=== PATIENT | female | born 1955 | race Caucasian/White ===

== ENCOUNTER 2022-12-10 09:16 | Outpatient (CLI) | payer OTHER, SELFPAY ==
--- NOTE | 2022-12-18 13:00 | WPDHOMESLEEP ---
Sleep Study - Home Unattended Date of Study: 12/10/22 Ordering Provider: Maria Elena Brunner DO Interpreting Provider: Janis Gonsalez DO Home Sleep Study Type: Watch PAT Height: 1.65 m Weight: 113.398 kg Body Mass Index: 41.5 Neck Circumference (inches): 18.25 [place]: 18 Reason for Sleep Study Snoring, daytime hypersomnia Sleep History The patient is a 67-year-old female with hypertension and depression that had a sleep study ordered by her primary care for evaluation of sleep apnea. The patient denies awakening from sleep short of breath. She denies awakening at night with heartburn, belching or cough. She constantly snores loudly enough that others complain. She denies having trouble sleeping when she has a cold. She denies waking up gasping for air throughout the night. She denies having breathing problems at night observed by herself or others. He rarely sweats excessively at night. She occasionally has heart palpitations or irregular heartbeats during the night. She frequently falls asleep during the day but never while driving. She denies sleep paralysis and cataplexy. She occasionally has trouble at school or work due to sleepiness. She rarely experiences vivid dreamlike scenes upon awakening or falling asleep. She denies feeling afraid of going to sleep. She denies having nightmares. She occasionally remembers her dreams. She denies having thoughts racing through her mind. She denies feeling sad, depressed or anxious. She denies having muscular tension. She denies noticing parts of her body jerk. She denies kicking during the night. She denies having crawling and aching feelings in her legs and denies having leg pain during the night. She denies grinding her teeth during sleep and denies awakening with morning jaw pain. She denies being bothered by pain during the day and denies being awakened by pain during the night. She rarely wakes up feeling stiff in the morning. She denies waking up with sore or achy muscles. She denies waking up with pain in the neck, spine or other joints. She goes to bed at 10:30 p.m. on weekdays and at 11:00 p.m. on the weekends. It takes her less than 5 minutes to fall asleep. She wakes up twice throughout the night to urinate and is able to fall back asleep within 10 minutes. He wakes up at 6:30 a.m. on weekdays and at 8:00 a.m. on the weekends. She typically gets 8-10 hours of sleep per night. She does not stay in bed after waking up in the morning. She denies consuming any caffeinated beverages within 2 hours of bedtime. She denies engaging in physical exercise before bedtime. She will read before falling asleep. She will take naps in the afternoon or the evening and they are refreshing. She consumes 2 cups of caffeinated beverage per day. She will have 1 alcoholic beverage per week. She denies tobacco and recreational use. [facility] Family History Family History Father Hypertension Glaucoma Mother Diabetes mellitus Macular degeneration Social History Social History Smoking status: Never smoker Second hand tobacco smoke exposure: No Alcohol intake: current Drinks per week: 1 Substance use: never Lack of Transportation: No Lack of Food: Never True Current Housing: I Have Housing Concerned About Future Housing: No Difficulty Paying Gas/Electric Bills: No Difficulty Paying for Meds: No Currently Unemployed: No Education: Master's Degree or Higher Difficulty w/ Childcare or Family Care: No Medications Home Medications Medication Instructions Recorded Confirmed Type losartan 50 mg tablet 50 mg PO DAILY #90 tabs 12/05/22 Rx bupropion HCl 150 mg 24 hr tablet, 150 mg PO QAM #90 tabs 12/12/22 Rx extended release hydrochlorothiazide 12.5 mg tablet 12.5 mg PO DAILY #90 tabs 12/12/22 Rx Sleep Procedure The
[2022-12-18 13:01] VITALS: BMI 41.5
== END 2022-12-11 12:44 | disposition home or self-care (01) ==
LOC: ANHCSM 09:17
PROVIDERS: PCP Family Medicine; Visit Provider Family Medicine
DX: G47.9 Sleep disorder, unspecified (principal); R53.83 Other fatigue; R06.83 Snoring; E66.9 Obesity, unspecified; G47.33 Obstructive sleep apnea (adult) (pediatric)
CPT/HCPCS: 95800

== ENCOUNTER 2023-01-10 09:45 | Outpatient (CLI) | payer OTHER, SELFPAY ==
--- NOTE | 2023-01-30 12:38 | WPDSLEEPSTUD ---
Sleep Study Date of Study: 01/10/23 Ordering Provider: Maria Elena Brunner DO Interpreting Physician: Nicolasa Gore MD Sleep Study Type: CPAP Titration Height: 1.65 m Weight: 113.398 kg Body Mass Index: 41.5 Neck Circumference (inches): 18.25 [place]: 18 Reason for Sleep Study * 12/10/2022 Home sleep test using WatchPat = AHI of 85.6 with desaturation down to 65%. The patient returns for a CPAP titration. Sleep History Carmelina Saavedra is a 67-year-old woman who had a home sleep test 12/10/22 for excessive daytime sleepiness. This showed severe obstructive sleep apnea with an AHI of 85.6 with desaturation down to 65%. She returns for a CPAP titration. Medical co-morbidities include hypertension and depression. She does not wake from sleep feeling short of breath. She does not have episodes of waking at night with heartburn, belching or coughing.? She constantly snores loudly enough that others complain.? She denies having trouble sleeping when she has a cold.? She denies waking up gasping for air at night. She rarely sweats excessively at night.? She occasionally has heart palpitations or irregular heartbeats during the night.? She frequently falls asleep during the day but never while driving.? She denies muscle weakness with strong emotion or feeling muscle weakness on falling asleep or upon waking. She occasionally has daytime difficulty at work due to sleepiness.? She rarely experiences vivid dreamlike scenes upon awakening or falling asleep.? She does not feel afraid to go to sleep. She denies having nightmares.? She occasionally remembers her dreams.? She denies having thoughts racing through her mind.? She denies feeling sad, depressed or anxious.? She denies having muscular tension.? She does not notice parts of her body jerking.? She does not kick at night. She dose not have crawling or aching feelings in her legs or any leg pain at night. She denies grinding her teeth during sleep, denies waking with morning jaw pain.? She denies being bothered by pain during the day and denies being awakened by pain during the night.? She rarely wakes up feeling stiff in the morning.? She denies waking up with sore or achy muscles.? She denies waking up with pain in the neck, spine or other joints.? Normal bedtime is 10:30 p.m. on weekdays, 11:00 p.m. on the weekends.? She falls asleep within 5 minutes, waking twice throughout the night to urinate. She is able to return to sleep within 10 minutes.? She wakes at 6:30 a.m. on weekdays and at 8:00 a.m. on the weekends.? She typically gets 8-10 hours of sleep per night.? She takes naps in the afternoon or the evening. A short nap is not refreshing. Habits: No tobacco. Caffeine: 2 servings per day. Alcohol: 1 alcoholic beverage per week.? Recreational substance: none. [facility] Past Medical History Medical History (Updated 01/30/23 @ 13:04 by Nicolasa Gore MD) Depression HTN (hypertension) CAN (obstructive sleep apnea) Family History Family History Father Hypertension Glaucoma Mother Diabetes mellitus Macular degeneration Social History Social History Smoking status: Never smoker Second hand tobacco smoke exposure: No Alcohol intake: current Drinks per week: 1 Substance use: never Lack of Transportation: No Lack of Food: Never True Current Housing: I Have Housing Concerned About Future Housing: No Difficulty Paying Gas/Electric Bills: No Difficulty Paying for Meds: No Currently Unemployed: No Education: Master's Degree or Higher Difficulty w/ Childcare or Family Care: No Medications Home Medications Medication Instructions Recorded Confirmed Type losartan 50 mg tablet 50 mg PO DAILY #90 tabs 12/05/22 Rx bupropion HCl 150 mg 24 hr tablet, 150 mg PO QAM #90 tabs 12/12/22 Rx extended release hydrochlorothiazide 12.5 mg tablet 12.5 mg P
[2023-01-30 12:39] VITALS: BMI 41.5
== END 2023-01-11 07:19 | disposition home or self-care (01) ==
LOC: ANHCSM 09:45
PROVIDERS: PCP Family Medicine; Visit Provider Family Medicine
DX: G47.33 Obstructive sleep apnea (adult) (pediatric) (principal)
CPT/HCPCS: 95811

== ENCOUNTER 2023-06-24 10:02 | Emergency (ER) | payer OTHER, SELFPAY ==
--- NOTE | ~2023-06-24 | XR_ITS ---
EXAM: XR knee LT 3V DATE: 06/24/2023 15:32 HISTORY: knee pain, SLAMMED KNEE IN CAR DOOR SAT. . COMPARISON: None available. FINDINGS: Normal mineralization. No fracture or dislocation. No lytic or blastic lesion. Tricompartm ental osteoarthritic arthritis, moderate in the medial compartment. No erosion or periosteal change. Soft tissues within normal limits. Large volume joint fluid. IMPRESSION: No acute osseous finding in the left knee. Large left knee joint effusion. Reviewed, dictated and finalized at location K. U[employer] RECEIVABLE SPECIALIST IMPRESSION: No acute osseous finding in the left knee. Large left knee joint ef fusion.
[2023-06-24 10:07] VITALS: BP 122/59; PULSE 71; RESP 16; TEMP 36.2; O2SAT 98
[2023-06-24 14:21] VITALS: BP 118/66; PULSE 64; RESP 15; O2SAT 100
--- NOTE | 2023-06-24 15:13 | ED.EXTPRO ---
HPI - Extremity Problem General Chief complaint: Extremity Problem,Nontraumatic Stated complaint: knee and hip pain Time Seen by Provider: 06/24/23 14:18 History of Present Illness HPI Narrative: Patient is a 68-year-old female presenting with left knee pain. States that a couple of days ago she developed severe left knee pain that has been making it difficult for her to walk and stand up from sitting. States that she took 800 mg of ibuprofen earlier today which did help temporarily. She is concerned that she is going to fall or not be able to stand up from sitting since she lives alone. States that she did fall on to this knee several months ago but has not really had any problems until this weekend. States that she starting to have some right hip and groin pain as she thinks that she is over compensating with this leg. No new trauma. No swelling or redness. No infectious symptoms. Related Data Allergies Allergy/AdvReac Type Severity Reaction Status Date / Time No Known Allergies Allergy Verified 05/28/23 14:36 Review of Systems Review of Systems: All systems reviewed & are unremarkable except as noted in HPI and below PMFSH Past Medical History Medical History Depression HTN (hypertension) CAN (obstructive sleep apnea) Family History Family History Father Hypertension Glaucoma Mother Diabetes mellitus Macular degeneration Social History Social History Smoking status: Never smoker Second hand tobacco smoke exposure: No Alcohol intake: current Drinks per week: 1 Substance use: never Lack of Transportation: No Lack of Food: Never True Current Housing: I Have Housing Concerned About Future Housing: No Difficulty Paying Gas/Electric Bills: No Difficulty Paying for Meds: No Currently Unemployed: No Education: Master's Degree or Higher Difficulty w/ Childcare or Family Care: No Exam Narrative: GENERAL: Well-appearing, In no acute distress, pleasant cooperative HEAD: Normocephalic, atraumatic. EYES: PERRLA and EOMI. ENT: grossly unremarkable NECK: Supple. CHEST: No respiratory distress. HEART: Regular rate and rhythm EXTREMITIES: Normal range of motion. left knee w/mild diffuse tenderness, no erythema of knee; ROM intact; distal pulses 2+; no swelling of calves SKIN: Warm, dry skin lower legs NEURO: No focal deficits. Alert and oriented x3. PSYCH: Normal mood and affect. Course Vital Signs Vital signs: Vital Signs Temperature 97.1 F L 06/24/23 10:07 Pulse Rate 71 06/24/23 10:07 Respiratory Rate 16 06/24/23 10:07 Blood Pressure 122/59 L 06/24/23 10:07 Pulse Oximetry 98 06/24/23 10:07 Temperature 97.1 F L 06/24/23 10:07 Pulse Rate 66 06/24/23 16:49 Respiratory Rate 17 06/24/23 16:49 Blood Pressure 128/69 06/24/23 16:49 Pulse Oximetry 99 06/24/23 16:49 MDM - Extremity (Nontraumatic) MDM Narrative Medical decision making narrative: 68-year-old female presenting with left knee pain. Vitals stable. Exam remarkable for the above. knee x-ray with large left knee effusion. Suspect that this is the cause of her worsening pain. Patient states that she has had some relief from IM Toradol and a Percocet. Ever wrap will be placed for some compression and she will be provided with crutches to keep weight off of the knee. Will send in for 5 Percocet for severe pain, recommend ibuprofen as well. Advised orthopedic follow-up. Appropriate return precautions given. Patient is agreeable with this plan. Discharged in stable condition. Differential Diagnosis Differential diagnosis: Likely other ( Knee pain, knee effusion) Medical Records Attestation: I reviewed the patient's medical records. Imaging Data Radiologist's impression: ITS Impressions Kn
[2023-06-24] MEDS: KETOROLAC 30 MG/ML VIAL (*BKC) IM (15:36)
[2023-06-24] MEDS: oxyCODONE/ACETAMINOPHEN (*CRX) 5-325 MG TABLET 1 TABLET PO (15:37)
[2023-06-24 16:49] VITALS: BP 128/69; PULSE 66; RESP 17; O2SAT 99
== END 2023-06-24 16:53 | disposition home or self-care (01) ==
PROVIDERS: Emergency Provider Emergency Medicine; PCP Family Medicine
DX: M25.462 Effusion, left knee (principal); I10 Essential (primary) hypertension
CPT/HCPCS: 73562; 96372; 99283; A9270; J1885

== ENCOUNTER → 2023-07-01 15:20 | Outpatient (CLI) | payer OTHER, SELFPAY ==
--- NOTE | ~2023-07-01 | MM_ITS ---
EXAMINATION: MM screening arturo BI w jose c HISTORY: Screening mammogram TECHNIQUE: Craniocaudal and mediolateral oblique 3-D tomosynthesis images were obtained and synthetic 2-D images were generated. CAD analysis was submitted and interpreted. COMPARISON: No prior mammogram is available for comparison at this institution. BREAST PARENCHYMAL COMPOSITION: There are scattered areas of fibroglandular density. FINDINGS: There is a 7 mm circumscribed opacity with small smooth circular calcification and with sai o sign, situated in the anterior aspect of the mid to upper outer right breast. Approximately 6 mm mass is suggested anteriorly in the lower mid left breast. Bilateral diagnostic mammography is recommended, with ultrasound if required IMPRESSION: 1. Bilateral breast masses 2. Bilateral diagnostic mammography is recommended, with ultrasound if required BI-RADS Category 0: Incomplete: Needs additional imaging evaluation. Reviewed, dictated and finalized at location A. LE ANALYST
== END ==
PROVIDERS: PCP Family Medicine; Visit Provider Family Medicine
DX: Z12.31 Encounter for screening mammogram for malignant neoplasm of breast (principal); R92.8 Other abnormal and inconclusive findings on diagnostic imaging of breast
CPT/HCPCS: 77063; 77067

== ENCOUNTER 2023-07-09 10:16 | Outpatient (CLI) | payer OTHER, SELFPAY ==
--- NOTE | ~2023-07-09 | MM_ITS ---
EXAMINATION: MM diagnostic arturo BI w jose c HISTORY: Bilateral breast masses reported on 06/2023 screening mammogram examination TECHNIQUE: Additional 3-D tomosynthesis images of both breasts were performed and synthetic 2-D image s were generated. CAD analysis was submitted and interpreted. COMPARISON: 07/01/2023ilateral screening mammogram FINDINGS: Low-density circumscribed approximately 7 mm rounded opacity with benign circular calcifica tion is noted anteriorly in the upper outer right breast, benign in appearance. No reproducible suspicious mass, architectural distortion, malignant calcification, skin thickening o r retraction of either breast is detected. IMPRESSION: 1. Benign finding 2. Routine annual mammographic screening is recommended BI-RADS Category 2: Benign finding(s). Reviewed, dictated and finalized at location A.
== END 2023-07-09 10:17 | disposition home or self-care (01) ==
PROVIDERS: PCP Family Medicine; Visit Provider Family Medicine
DX: N63.25 Unspecified lump in the left breast, overlapping quadrants (principal); N63.21 Unspecified lump in the left breast, upper outer quadrant; N63.10 Unspecified lump in the right breast, unspecified quadrant; N63.20 Unspecified lump in the left breast, unspecified quadrant
CPT/HCPCS: 77062; 77066; G0279

== ENCOUNTER 2023-07-26 08:37 | Outpatient (CLI) | payer OTHER, SELFPAY ==
[2023-07-26 13:34] LABS: Hematocrit 40.3 % (37.0-47.0); Hemoglobin 12.3 g/dL (12.0-15.0); Mean Corpuscular HGB Conc 30.5 g/dl (32-36); Mean Corpuscular Hemoglobin 26.3 pg (26-34); Mean Corpuscular Volume 86.3 fl (80-100); Mean Platelet Volume 9.2 fl (7.4-10.4); Platelet Count Result 247 k/mm3 (150-375); Red Blood Count 4.67 M/mm3 (4.2-5.4); Red Cell Distribution Width 14.7 % (11.5-14.5); White Blood Count 8.8 K/mm3 (4.5-10.0)
[2023-07-26 13:53] LABS: Alanine Aminotransferase 18 U/L (6-35); Albumin Level 4.2 g/dL (3.5-5.1); Alkaline Phosphatase 74 U/L (38-126); Anion Gap 9 mmol/L (4-12); Aspartate Amino Transferase 27 U/L (14-36); Bilirubin,Total 0.5 mg/dL (0.2-1.3); Blood Urea Nitrogen 14 mg/dL (7-17); Calcium 9.2 mg/dL (8.4-10.2); Carbon Dioxide 27 mmol/L (22-30); Chloride 105 mmol/L (98-107); Cholesterol 203 mg/dL (0-200); Estimated Glomerular Filt Rate > 60; Glucose 107 mg/dL (65-110); HDL Direct 36 mg/dL; Potassium 3.8 mmol/L (3.4-5.0); Sodium 141 mmol/L (137-145); Triglycerides 166 mg/dL (<150)
[2023-07-26 14:07] LABS: LDL Cholesterol Direct 138 mg/dL
== END 2023-07-26 08:38 | disposition home or self-care (01) ==
LOC: ANHGOSHLAB 08:39
PROVIDERS: PCP Family Medicine; Visit Provider Nurse Practitioner
DX: E66.9 Obesity, unspecified (principal); Z79.899 Other long term (current) drug therapy; I10 Essential (primary) hypertension
CPT/HCPCS: 36415; 80053; 80061; 84443; 85027

== ENCOUNTER 2023-11-29 14:50 | Outpatient (CLI) | payer OTHER, SELFPAY ==
--- NOTE | ~2023-11-29 | DEXA_ITS ---
Bone Density Report Name: SYEDA SWARTZ Age: 68 Sex: Female Ethnicity: White Date of : 1955 Indication: postmenopausal; screening for osteoporosis; height loss; Referring Provider: Maria Elena Brunner Study: Bone densitometry was performed. Exam Date: November 29, 2023 Accession number: [id number] Bone Density: Region BMD T-score Z-score Classification AP Spine(L1, L2, L3) 1.021 0.0 1.9 Normal Femoral Neck (Left) 0.957 1.0 2.6 Normal Total Hip (Left) 1.121 1.5 2.8 Normal Femoral Neck (Right) 0.993 1.3 2.9 Normal Total Hip (Right) 1.062 1.0 2.3 Normal Femoral Neck Mean 0.975 1.1 2.7 Normal Total Hip Mean 1.091 1.2 2.5 Normal World Health Organization criteria for BMD impression classify patients as: Normal (T-score at or above -1.0), Osteopenia (T-score between -1.0 and -2.5), or Osteoporosis (T-score at or below -2.5). 10-year Fracture Risk: FRAX not reported because: All T-scores for Spine Total, Hip Total, Femoral Neck at or above -1.0 Clinical Information Provided by Patient: Has used the following medications: Vitamin D Patient maximum height was 65 Menopause Age: 52 No regular weight bearing exercise Does not regularly consume dairy products Drinks caffeinated beverages Onset of menses at age 13 Number of children 0 Impression: The patient has normal bone mass. Discussion: BONE DENSITY IS ABOVE THE MINIMUM DESIRABLE LEVEL AT ALL SKELETAL SITES TESTED. This patient?s bone mineral density is above the minimum desirable level (T-score -1.0 or better) at all sites measured. The patient should follow a healthful lifestyle (good nutrition with adequate calcium and vitamin D, and appropriate weight-bearing exercise). Follow-Up: Consider repeating this study in 5 years or sooner if there is some new clinical indication. Reported by: Dr. Mega Chin on 11/29/2023 3:14:00 PM. Reviewed, dictated and finalized at location AAnai [facility]
== END 2023-11-29 14:51 | disposition home or self-care (01) ==
LOC: CHSIMG 14:51
PROVIDERS: PCP Family Medicine; Visit Provider Family Medicine
DX: Z78.0 Asymptomatic menopausal state (principal)
CPT/HCPCS: 77080

== ENCOUNTER 2024-08-05 14:59 | Outpatient (CLI) | payer OTHER, SELFPAY ==
--- NOTE | ~2024-08-05 | MM_ITS ---
EXAMINATION: MM screening arturo BI w jose c HISTORY: Screening TECHNIQUE: Craniocaudal and mediolateral oblique 3-D tomosynthesis images were obtained and synthetic 2-D images were generated. CAD analysis was submitted and interpreted. COMPARISON: Comparison to multiple prior studies sequentially, with oldest reviewed study dated 04/2015. BREAST PARENCHYMAL COMPOSITION: Not dense: There are scattered areas of fibroglandular density. FINDINGS: There are multiple areas of fat necrosis in the right breast. There is a developing focal a symmetry inferiorly, anterior third on MLO view IMPRESSION: 1. Developing left breast asymmetry. 2. Additional mammographic views and possible breast ultrasound are recommended. BI-RADS Category 0: Incomplete: Needs additional imaging evaluation. Reviewed, dictated and finalized at location A. IMPRESSION: 1. Developing left breast asymmetry. 2. Additional mammographic views and possible breast ultrasound are recommended . BI-RADS Category 0: Incomplete: Needs additional imaging evaluation.
== END 2024-08-05 15:00 | disposition home or self-care (01) ==
PROVIDERS: PCP Family Medicine; Visit Provider Family Medicine
DX: Z12.31 Encounter for screening mammogram for malignant neoplasm of breast (principal); R92.8 Other abnormal and inconclusive findings on diagnostic imaging of breast
CPT/HCPCS: 77063; 77067

== ENCOUNTER 2024-08-10 08:56 | Outpatient (CLI) | payer OTHER, SELFPAY ==
--- NOTE | ~2024-08-10 | MMUS_ITS ---
EXAMINATION: MM diagnostic arturo LT w jose c, US breast LT limited HISTORY: Follow-up left breast asymmetry TECHNIQUE: Additional 3-D tomosynthesis images of the left breast were performed and synthetic 2-D im ages were generated. CAD analysis was submitted and interpreted. High resolution Limited left breast ultrasound was performed. COMPARISON: Comparison to multiple prior studies sequentially, with oldest reviewed study dated 04/2015. BREAST PARENCHYMAL COMPOSITION: Not dense: There are scattered areas of fibroglandular density. FINDINGS: MAMMOGRAPHIC FINDINGS: The area of asymmetry is less apparent with spot compression and mediolateral views, likely superimpo sed fibroglandular tissue. No suspicious masses or architectural distortion. ULTRASOUND: Limited left breast ultrasound: Normal heterogeneous echotexture without focal solid or cystic mass. IMPRESSION: 1. No evidence for malignancy in the left breast. 2. Routine yearly screening mammogram and regular clinical breast examination are recommended. BI-RADS Category 2: Benign finding(s). Reviewed, dictated and finalized at location B. IMPRESSION: 1. No evidence for malignancy in the left breast. 2. Routine yearly screening mammogram and regular clinical breast examination a re recommended. BI-RADS Category 2: Benign finding(s).
== END 2024-08-10 08:57 | disposition home or self-care (01) ==
LOC: CHSIMG 08:56
PROVIDERS: PCP Family Medicine; Visit Provider Nurse Practitioner
DX: R92.8 Other abnormal and inconclusive findings on diagnostic imaging of breast (principal)
CPT/HCPCS: 76642; 77061; 77065; G0279

== ENCOUNTER 2024-12-07 08:09 | Outpatient (CLI) | payer OTHER, SELFPAY ==
--- OUTSIDE RECORDS SUMMARY | 2024-12-07 08:15 | XMS_ITS | Continuity of Care Document ---
Author Organization [facility] [[email or web address]] Address [address] [address] [place] [address] Phone Care Team Providers Care Glass Tube Bender Name Role Phone Unavailable Unavailable Unavailable Allergies, Adverse Reactions, Alerts Substance Reaction Status Criticality No Known Allergies Active No Inform ation Medications Medication Instructions Dosage Effective Dates (start - stop) Status Comments erythromycin 5 mg/gram (0.5 %) eye ointment apply 1/4 inch to incisions 3x/day and in affected eye at bedtime for 7 days then ok to stop or use prn as needed - Active losartan 50 mg tablet take 1 tablet by oral route every day 50 MG - Active bupropion HCl 75 mg tablet take 1 tablet by oral route 3 times every day 75 MG - Active hydrochlorothiazide 12.5 mg tablet take 1 tablet by oral route every day 12.5 MG - Active PreserVision AREDS-2 250 mg-90 mg-40 mg-1 mg capsule - Active Vitamin D3 25 mcg (1,000 unit) tablet - Active Procedures Procedure Date Office/outpatient visit,[facility] 2021 Advance Directives Directive Yes / No Effective Date File Name No Information Encounters Encounter Description Practice Location Reason(s) For Visit Diagnoses Date Provider Providers Copied on Encounter Office/outpa tient visit,[facility], [address] [address], [place], [place], [id number], tel:[phone] [facility] Patient is here for a droopy lid consult (chief complaint) Dermatochalasis of right upper eyelid H02.831Dermatoc halasis of left upper eyelid H02.834Brow ptosis, bilateral H57.813 No Information Referring Provider: Sendy Gonzalez, [address] [facility], [place], [address]. tel:[phone] Family History Family Member Type Diagnosis Age At Onset Problem Family history of degenerati ve disorder of macula Problem Family history of hypertensi on Problem Family history of glaucoma Payers Payer name Insurance type Covered green party ID Authoriza tijulia(s) [facility] [id number] Social History Type Description Quantity Date Captured Comments Alcohol Use Details Unknown Caffeine Use Details Unknown Tobacco Use Status Never smoked tobacco 2021 Smoking Status Never smoker Non-Smoking Tobacco Use Details : No Details Available : No Details Available Sex Female Chief Complaint And Reason For Visit From encounter dated '08/09/2021 14:00'. Patient is here for a droopy lid consult (chief complaint) Reason For Referral Reason For Referral No Information History Of Present Illness Encounter Date Complaint History Of Prese nt Illness Patient is here for a droopy lid consult Patient is here for a droopy lid consult, which is worse on the RUL than the JESSICA. She states the lids have been lowering for the past year and has trouble with reading due to their position. She denies issues with swallowing but does have a family history of droopy lids. Functional Status Date Functional Assessmen t No Information Instructions Date Instruction Additional Infor pat - The patient was co unseled in detail on the diagnosis and understands. Recommend cosmetic endoscopic surgical repair of brow ptosis. Risks include (but not limited to): pain, bleeding, bruising, swelling, dry eye, infection, asymmetry, scarring, re-operation, possible adverse reaction to the anesthesia - including . The patient understands and would like to proceed with evaluation of brow ptosis and possibility of endoscopic brow lift. Patient will need to contact Dr. Scott at [phone] to set up consultation. Other plastic surgeons names provided (there is no commercial interest in this information). Photos taken today. We don't have commercial interest and/or liaison with any of the physicians melchor.Dr. Pritesh Butler [phone] [facility], [address], [place] [address]Bq. 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 Clinically, the palpebral aperture and medial reflex (1) are decreased due to this excess skin. Risks/Complications/Benefits/Alterna tives of surgical repair by blepharoplasty (skin removal) were explained and understood by the patient. Risks include, but not limited to: pain, bleeding, bruising, swelling, dry eye, infection, eyelid asymmetry, scarring, damage to the eye, vision loss, re-operation, possible adverse reaction to the anesthesia - INCLUDING . The patient voiced understanding and elects to consult for an endoscopic brow lift prior to proceeding with upper eyelid blepharoplasty Photos taken today. (This procedure is being done for functional purposes only, this is NOT a COSMETIC procedure. Folds of skin induced by heavy brows are not addressed in this procedure) Point #1: This is a surgery on your eyelids NOT your eyes. The surgery WILL NOT affect the clarity of your vision. Point #2: This is a surgery on your eyelids NOT your eyebrows. The area above the eyelid, eyebrow fat pad and bone belong to the eyebrow and will not be worked on surgically. Additional fold of skin are produced by the brow, that WILL NOT be corrected with this procedure, since its considered cosmeticPoint #3: Symmetry. Everyone is different, that is normal and after the surgery there will still be some difference. There can still be some difference from one side to the other. Point #4: Dryness. This is a risk of the surgery. Excess tearing can be a sign of dryness and may require strict regimen of lubrication with artificial tears, gel and/or ointment. In severe cases can reverse the ptosis repair if applicable. 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
[2024-12-07 13:03] LABS: Hematocrit 40.7 % (37.0-47.0); Hemoglobin 13.0 g/dL (12.0-15.0); Mean Corpuscular HGB Conc 31.9 g/dl (32-36); Mean Corpuscular Hemoglobin 27.0 pg (26-34); Mean Corpuscular Volume 84.6 fl (80-100); Platelet Count Result 257 k/mm3 (150-375); Red Blood Count 4.81 M/mm3 (4.2-5.4); White Blood Count 7.7 K/mm3 (4.5-10.0)
[2024-12-07 13:15] LABS: Alanine Aminotransferase 18 U/L (6-35); Albumin Level 4.4 g/dL (3.5-5.1); Alkaline Phosphatase 62 U/L (38-126); Anion Gap 8 mmol/L (4-12); Aspartate Amino Transferase 34 U/L (14-36); Bilirubin,Total 0.5 mg/dL (0.2-1.3); Blood Urea Nitrogen 14 mg/dL (7-17); Calcium 9.1 mg/dL (8.4-10.2); Carbon Dioxide 26 mmol/L (22-30); Chloride 106 mmol/L (98-107); Cholesterol 208 mg/dL (0-200); Estimated Glomerular Filt Rate > 60; Glucose 86 mg/dL (65-110); HDL Direct 43 mg/dL; Potassium 3.9 mmol/L (3.4-5.0); Sodium 140 mmol/L (137-145); Total Protein 7.6 g/dL (6.3-8.2); Triglycerides 119 mg/dL (<150)
[2024-12-07 13:51] LABS: Thyroid Stimulating Hormone 0.922 uIU/mL (0.465-4.680)
[2024-12-07 15:28] LABS: Hemoglobin A1C 5.9 % (<5.7)
== END 2024-12-07 08:10 | disposition home or self-care (01) ==
LOC: ANHGOSHLAB 08:10
PROVIDERS: PCP Family Medicine; Visit Provider Family Medicine
DX: R73.09 Other abnormal glucose (principal); E78.5 Hyperlipidemia, unspecified; E66.9 Obesity, unspecified; I10 Essential (primary) hypertension; Z79.899 Other long term (current) drug therapy
CPT/HCPCS: 36415; 80053; 80061; 83036; 84443; 85027